=== PATIENT | female | born 2000 | race Caucasian/White ===

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

== ENCOUNTER 2021-03-27 18:05 | Emergency (ER) | payer MEDICAID ==
[2021-03-27] MEDS ORDERED: Sodium Chloride 0.9% 1,000 ML IV ONE (18:34)
[2021-03-27] MEDS ORDERED: Ketorolac 30 MG/ML SDV IVPUSH ONE (18:42)
[2021-03-27] MEDS ORDERED: Ondansetron 4 MG/2 ML SDV IVPUSH ONE (18:42)
--- NOTE | 2021-03-27 18:48 | EDM.PDOC ---
ED HPI GENERAL MEDICAL PROBLEM - General Chief Complaint: Gastrointestinal Problem Stated Complaint: VOMITING, HEADACHE Time Seen by Provider: 03/27/21 18:15 Source of Information: Reports: Patient History Limitations: Reports: No Limitations - History of Present Illness INITIAL COMMENTS - FREE TEXT/NARRATIVE: HISTORY AND PHYSICAL: History of present illness: Patient is a 20-year-old female who presents to the emergency room with complaints of nausea, vomiting and diarrhea over the past 24 hours. Currently has a mild headache "from puking". She states she was around a friend who had a "GI bug". She has no concern for as she has not had sexual intercourse since her last menstrual period. Patient denies any fever, chills, change in vision, syncope or near syncope. Denies any chest pain, back pain, shortness of breath or cough. Denies any abdominal pain, constipation or dysuria. Has not noted any blood in urine or stool. Patient has been eating and drinking appropriately. Review of systems: As per history of present illness and below otherwise all systems reviewed and negative. Past medical history: As per history of present illness and as reviewed below otherwise noncontributory. Surgical history: As per history of present illness and as reviewed below otherwise noncontributory. Social history: See social history for further information Family history: As per history of present illness and as reviewed below otherwise noncontributory. Physical exam: General: Well developed and well nourished 20-year-old female. Alert and orientated x 3. Nontoxic in appearance and in no acute distress. Vital signs are stable and have been reviewed by me. Nursing notes were reviewed. HEENT: Atraumatic, normocephalic, pupils equal and reactive bilaterally, negative for conjunctival pallor or scleral icterus, mucous membranes moist, TMs normal bilaterally, throat clear, neck supple, nontender, trachea midline. No drooling or trismus noted. No meningeal signs. No hot potato voice noted. Lungs: Clear to auscultation bilaterally. No wheezes, rales, or rhonchi. Chest nontender. Normal work of breathing, no accessory muscles used. Heart: S1S2, regular rate and rhythm without overt murmur, gallops, or rubs. No JVD. No peripheral edema Abdomen: Soft, nondistended, nontender. Normoactive bowel sounds. Negative for masses or costovertebral tenderness. Skin: Intact, warm, dry. No lesions or rashes noted. Hematologic: No petechiae or purpra. Mucosa appropriate color and normal nail bed color and refill. Extremities: Atraumatic, moves all extremities per self without difficulty or deficits, negative for cords or calf pain. Neurovascular unremarkable. Neuro: Awake, alert, oriented. Cranial nerves II through XII unremarkable. Cerebellum unremarkable. Motor and sensory unremarkable throughout. Exam nonfocal. Psychiatric: Mood and affect are appropriate. Normal thought process. Answering questions appropriately. Notes: *This patient was seen and evaluated during the 2019 SARS-CoV-2 novel coronavirus pandemic period. Community viral transmission is ongoing at time of this encounter and the emergency department is operating under pandemic response procedures. Patient declines wanting a urine test nor COVID-19 screening. She is agreeable to IV fluids and Toradol/Zofran. Lab work is unremarkable. She states her nausea is better and did keep fluids down. I have talked with the patient about today's findings, in addition to providing specific details for plan of care. Reassessment at the time of disposition demonstrates that the patient is in no acute distress. The patient is stable for discharge, counseling was provided and we discussed in great detail signs and symptoms that would prompt them to return to the Emergency Department. Medication, follow up and supportive care measures were reviewed and discussed. Voices understanding and is agreeable to plan of care. Denies any further questions or concerns at this time. Diagnostics: CBC, CMP, [employer]: IV fluids, Zofran, Toradol Prescription: None Impression: Gastroenteritis Plan: 1. You were evaluated today on an emergent basis. 2. You can alternate Tylenol and ibuprofen as needed for pain and fever management. 3. We encourage you to follow up with your primary care provider and/or recommended specialist in the next few days for re-evaluation and further care/management. 4. If your symptoms should worsen, new symptoms develop or any of the signs and symptoms we discussed should arise please return to the emergency room or call 911 (if needed). Definitive disposition and diagnosis as appropriate pending reevaluation and review of above. head Pain Score (Numeric/FACES): 9 - Related Data Allergies Allergy/AdvReac Type Severity Reaction Status Date / Time Penicillins Allergy Rash Verified 03/27/21 18:29 Home Meds: Home Meds Ondansetron [Zofran ODT] 4 mg PO Q6H PRN #8 tab.dis 03/27/21 [Rx] Past Medical History - Past Health History Medical/Surgical History: Denies Medical/Surgical History HEENT History: Reports: Otitis Media, Sinusitis Other Musculoskeletal History: sprained ankle Neurological History: Reports: Headaches, Chronic Other Neuro History: headache Psychiatric History: Reports: Anxiety, Depression - Infectious Disease History Infectious Disease History: Reports: None - Past Surgical History HEENT Surgical History: Reports: Adenoidectomy, Naso-Sinus Surgery, Tonsillectomy Other HEENT Surgeries/Procedures: wisdom teeth removal Neurological Surgical History: Reports: None Social & Family History - Family History Family Medical History: No Pertinent Family History - Caffeine Use Caffeine Use: Reports: Energy Drinks, Soda ED ROS GENERAL - Review of Systems Review Of Systems: Comprehensive ROS is negative, except as noted in HPI. ED EXAM, GI/ABD - Physical Exam Exam: See Below (See dictation) Course - Vital Signs Last Recorded V/S: Last Vital Signs Temp 97.5 F 03/27/21 18:22 Pulse 74 03/27/21 18:22 Resp 20 03/27/21 18:22 BP 122/55 L 03/27/21 18:22 Pulse Ox 97 03/27/21 18:22 - Orders/Labs/Meds Orders: Active Orders 24 hr Category Date Time Status UA RFX LIVAN AND CULT IF INDIC [URIN] Stat Lab 03/27/21 18:17 Ordered Sodium Chloride 0.9% [Normal Saline] 1,000 ml Med 03/27/21 18:34 Active IV STAT Medication Orders Sodium Chloride (Normal Saline) 1,000 mls @ 999 mls/hr IV STAT ONE Stop: 03/27/21 19:34 Last Admin: 03/27/21 18:47 Dose: 999 mls/hr Documented by: BEVERLY Labs: Laboratory Tests 03/27/21 03/27/21 Range/Units 18:47 18:47 WBC 7.75 (4.0-11.0) K/uL RBC 4.44 (4.30-5.90) M/uL Hgb 12.7 (12.0-16.0) g/dL Hct 38.2 (36.0-46.0) % MCV 86.0 (80.0-98.0) fL MCH 28.6 (27.0-32.0) pg MCHC 33.2 (31.0-37.0) g/dL RDW Std Deviation 41.0 (28.0-62.0) fl RDW Coeff of Micha 13 (11.0-15.0) % Plt Count 287 (150-400) K/uL MPV 9.50 (7.40-12.00) fL Neut % (Auto) 72.9 (48.0-80.0) % Lymph % (Auto) 17.3 (16.0-40.0) % Curry % (Auto) 8.9 (0.0-15.0) % Eos % (Auto) 0.8 (0.0-7.0) % Baso % (Auto) 0.1 (0.0-1.5) % Neut # (Auto) 5.7 (1.4-5.7) K/uL Lymph # (Auto) 1.3 (0.6-2.4) K/uL Curry # (Auto) 0.7 (0.0-0.8) K/uL Eos # (Auto) 0.1 (0.0-0.7) K/uL Baso # (Auto) 0.0 (0.0-0.1) K/uL Nucleated RBC % 0.0 /100WBC Nucleated RBCs # 0 K/uL Sodium 139 (136-145) mmol/L Potassium 3.7 (3.5-5.1) mmol/L Chloride 104 (98-107) mmol/L Carbon Dioxide 27.0 (21.0-32.0) mmol/L BUN 10 (7.0-18.0) mg/dL Creatinine 1.1 H (0.6-1.0) mg/dL Est Cr Clr Drug Dosing 68.05 mL/min Estimated GFR (MDRD) > 60.0 ml/min Glucose 92 (74-106) mg/dL Calcium 8.6 (8.5-10.1) mg/dL Total Bilirubin 0.6 (0.2-1.0) mg/dL AST 19 (15-37) IU/L ALT 43 (14-63) IU/L Alkaline Phosphatase 96 (46-116) U/L Total Protein 7.4 (6.4-8.2) g/dL Albumin 3.9 (3.4-5.0) g/dL Globulin 3.5 (2.6-4.0) g/dL Albumin/Globulin Ratio 1.1 (0.9-1.6) Meds: Medications Generic Name Dose Route Start Last Admin Trade Name Freq PRN Reason Stop Dose Admin Sodium Chloride 1,000 mls @ 999 mls/hr 03/27/21 18:34 03/27/21 18:47 Normal Saline IV 03/27/21 19:34 999 mls/hr STAT ONE Administration Discontinued Medications Generic Name Dose Route Start Last Admin Trade Name Freq PRN Reason Stop Dose Admin Ketorolac Tromethamine 30 mg 03/27/21 18:42 03/27/21 18:47 Ketorolac 30 Mg/Ml Sdv IVPUSH 03/27/21 18:43 30 mg ONETIME ONE Administration Ondansetron HCl 4 mg 03/27/21 18:42 03/27/21 18:47 Ondansetron 4 Mg/2 Ml Sdv IVPUSH 03/27/21 18:43 4 mg ONETIME ONE Administration Departure - Departure Time of Disposition: 19:26 Disposition: Home, Self-Care 01 Clinical Impression: Viral gastroenteritis - Discharge Information Prescriptions: Ondansetron [Zofran ODT] 4 mg PO Q6H PRN #8 tab.dis PRN Reason: Nausea Instructions: Viral Gastroenteritis, Adult, [id number] Referrals: PCP,None [Primary Care Provider] - Forms: ED Department Discharge Additional Instructions: The following information is given to patients seen in the emergency department who are being discharged to home. This information is to outline your options for follow-up care. We provide all patients seen in our emergency department with a follow-up referral. The need for follow-up, as well as the timing and circumstances, are variable depending upon the specifics of your emergency department visit. If you don't have a primary care physician on staff, we will provide you with a referral. We always advise you to contact your personal physician following an emergency department visit to inform them of the circumstance of the visit and for follow-up with them and/or the need for any referrals to a consulting specialist. The emergency department will also refer you to a specialist when appropriate. This referral assures that you have the opportunity for follow-up care with a specialist. All of these measure are taken in an effort to provide you with optimal care, which includes your follow-up. Under all circumstances we always encourage you to contact your private physician who remains a resource for coordinating your care. When calling for follow-up care, please make the office aware that this follow-up is from your recent emergency room visit. If for any reason you are refused follow-up, please contact the [facility] Emergency Department at and asked to speak to the emergency department charge nurse. [facility] [address] [place] [id number] [id number] Thank you for choosing the [facility] emergency department in [place] for your medical needs today. It was a pleasure caring for you. Today you were seen in the emergency department for gastroenteritis. 1. You were evaluated today on an emergent basis. 2. You can alternate Tylenol and ibuprofen as needed for pain and fever management. Zofran as needed for nausea management as directed. 3. We encourage you to follow up with your primary care provider and/or recommended specialist in the next few days for re-evaluation and further care/management. 4. If your symptoms should worsen, new symptoms develop or any of the signs and symptoms we discussed should arise please return to the emergency room or call 911 (if needed). Sepsis Event Note (ED) - Evaluation Sepsis Screening Result: No Definite Risk - Focused Exam Vital Signs: Vital Signs Temp Pulse Resp BP Pulse Ox 03/27/21 18:22 97.5 F 74 20 122/55 L 97 - My Orders Last 24 Hours: My Active Orders 03/27/21 18:17 UA RFX LIVAN AND CULT IF INDIC [URIN] Stat 03/27/21 18:34 Sodium Chloride 0.9% [Normal Saline] 1,000 ml IV STAT - Assessment/Plan Last 24 Hours: My Active Orders 03/27/21 18:17 UA RFX LIVAN AND CULT IF INDIC [URIN] Stat 03/27/21 18:34 Sodium Chloride 0.9% [Normal Saline] 1,000 ml IV STAT
[2021-03-27 19:16] LABS: BLOOD UREA NITROGEN,BUN 10 mg/dL (7.0-18.0); CHLORIDE,CL 104 mmol/L (98-107); GLUCOSE RANDOM 92 mg/dL (74-106); POTASSIUM,K 3.7 mmol/L (3.5-5.1); SODIUM,NA 139 mmol/L (136-145)
[2021-03-27 20:50] VITALS: BP 119/50; PULSE 78
== END 2021-03-27 20:00 | disposition home or self-care (01) ==
LOC: MW.ED 18:05
DX: A08.4 Viral intestinal infection, unspecified (principal); Z88.0 Allergy status to penicillin
CPT/HCPCS: 80053; 85025; 96374; 96375; 99284; J1885; J2405; J7030; 99283

== ENCOUNTER 2023-03-26 13:54 | Emergency (ER) | payer BC ==
[2023-03-26] MEDS ORDERED: Sodium Chloride 0.9% 1,000 ML IV ONE (14:05)
[2023-03-26 14:34] LABS: BASOPHILS PERCENT AUTO 0.1 % (0.0-1.5); EOSINOPHILS PERCENT AUTO 0.3 % (0.0-7.0); HEMATOCRIT 37.3 % (36.0-46.0); HEMOGLOBIN 12.6 g/dL (12.0-16.0); LYMPHOCYTES ABSOLUTE AUTO 1.2 K/uL (0.6-2.4); LYMPHOCYTES PERCENT AUTO 16.4 % (16.0-40.0); MEAN CORPUSCULAR HEMOGLOBIN 28.6 pg (27.0-32.0); MEAN CORPUSCULAR HGB CONC 33.8 g/dL (31.0-37.0); MEAN CORPUSCULAR VOLUME 84.6 fL (80.0-98.0); MONOCYTES ABSOLUTE AUTO 0.5 K/uL (0.0-0.8); MONOCYTES PERCENT AUTO 6.2 % (0.0-15.0); NEUTROPHILS ABSOLUTE AUTO 5.8 K/uL (1.4-5.7); NRBC ABSOLUTE 0 K/uL; PLATELET COUNT,PLT 267 K/uL (150-400); RED BLOOD CELL COUNT 4.41 M/uL (4.30-5.90); WHITE BLOOD CELL COUNT,WBC 7.55 K/uL (4.0-11.0)
[2023-03-26 15:22] LABS: CORONAVIRUS COVID-19 NAA NEGATIVE (NEGATIVE); INFLUENZA A NAA NEGATIVE (NEGATIVE); INFLUENZA B NAA NEGATIVE (NEGATIVE)
[2023-03-26 15:23] LABS: A/G RATIO 0.9 (0.9-1.6); ALANINE AMINOTRANSFERASE,ALT 34 IU/L (14-63); ALBUMIN 3.4 g/dL (3.4-5.0); ALKALINE PHOSPHATASE 68 U/L (46-116); ASPARTATE AMNIOTRANSFERASE,AST 15 IU/L (15-37); BILIRUBIN TOTAL 0.4 mg/dL (0.2-1.0); BLOOD UREA NITROGEN,BUN 7 mg/dL (7.0-18.0); CALCIUM 8.6 mg/dL (8.5-10.1); CARBON DIOXIDE,CO2 24.6 mmol/L (21.0-32.0); CHLORIDE,CL 102 mmol/L (98-107); CREATININE 0.9 mg/dL (0.6-1.0); EST CRCL DRUG DOSING (CG) 88.97 mL/min; GLUCOSE RANDOM 83 mg/dL (74-106); POTASSIUM,K 3.6 mmol/L (3.5-5.1); SODIUM,NA 138 mmol/L (136-145)
[2023-03-26 15:29] LABS: ESTIMATED GFR 93 mL/min (>60)
[2023-03-26 16:36] VITALS: BP 122/75; PULSE 81
== END 2023-03-26 16:34 | disposition home or self-care (01) ==
LOC: MW.ED 13:54
DX: O99.891 Other specified diseases and conditions complicating pregnancy (principal); R06.00 Dyspnea, unspecified; Z88.0 Allergy status to penicillin; Z20.822 Contact with and (suspected) exposure to COVID-19
CPT/HCPCS: 0240U; 36415; 71045; 80053; 84484; 84702; 84703; 85025; 93005; 96360; 99285; J7030; 93010; 99283

== ENCOUNTER 2023-05-26 08:10 | Emergency (ER) | payer BC ==
[2023-05-26] MEDS ORDERED: Metoclopramide 10 MG/2 ML SDV IVPUSH ONE (08:23)
[2023-05-26] MEDS ORDERED: Sodium Chloride 0.9% 2.5 ML Syringe FLUSH PRN (08:23)
[2023-05-26] MEDS ORDERED: Sodium Chloride 0.9% 1,000 ML IV ONE (08:23)
[2023-05-26] MEDS ORDERED: Sodium Chloride 0.9% 10 ML Syringe FLUSH PRN (08:23)
[2023-05-26] MEDS ORDERED: diphenhydrAMINE 50 MG/ML SDV IVPUSH ONE (08:23)
[2023-05-26 08:52] LABS: BASOPHILS PERCENT AUTO 0.2 % (0.0-1.5); EOSINOPHILS PERCENT AUTO 0.5 % (0.0-7.0); HEMATOCRIT 36.9 % (36.0-46.0); HEMOGLOBIN 12.8 g/dL (12.0-16.0); LYMPHOCYTES PERCENT AUTO 16.8 % (16.0-40.0); MEAN CORPUSCULAR HEMOGLOBIN 28.5 pg (27.0-32.0); MEAN CORPUSCULAR HGB CONC 34.7 g/dL (31.0-37.0); MEAN CORPUSCULAR VOLUME 82.2 fL (80.0-98.0); MONOCYTES ABSOLUTE AUTO 0.4 K/uL (0.0-0.8); NEUTROPHILS ABSOLUTE AUTO 4.6 K/uL (1.4-5.7); NEUTROPHILS PERCENT AUTO 75.5 % (48.0-80.0); NRBC ABSOLUTE 0 K/uL; PLATELET COUNT,PLT 245 K/uL (150-400); RED BLOOD CELL COUNT 4.49 M/uL (4.30-5.90); WHITE BLOOD CELL COUNT,WBC 6.12 K/uL (4.0-11.0)
[2023-05-26 09:03] LABS: INR 0.97 (0.86-1.11)
[2023-05-26 09:22] LABS: A/G RATIO 0.8 (0.9-1.6); ALBUMIN 3.1 g/dL (3.4-5.0); BILIRUBIN TOTAL 0.3 mg/dL (0.2-1.0); CALCIUM 8.8 mg/dL (8.5-10.1); CARBON DIOXIDE,CO2 22.5 mmol/L (21.0-32.0); CREATININE 0.7 mg/dL (0.6-1.0); EST CRCL DRUG DOSING (CG) 109.78 mL/min; MAGNESIUM 1.9 mg/dL (1.8-2.4); POTASSIUM,K 3.7 mmol/L (3.5-5.1); PROTEIN TOTAL,TP 6.8 g/dL (6.4-8.2)
[2023-05-26 10:29] VITALS: BP 100/68; PULSE 57
== END 2023-05-26 10:27 | disposition home or self-care (01) ==
LOC: MW.ED 08:10
DX: R51.9 Headache, unspecified (principal); Z33.1 Pregnant state, incidental; Z79.899 Other long term (current) drug therapy; Z88.0 Allergy status to penicillin
CPT/HCPCS: 36415; 70551; 80053; 83735; 85025; 85610; 96361; 96374; 96375; 99284; J1200; J2765; J3490; J7030

== ENCOUNTER 2023-09-16 16:00 | Emergency (ER) | payer BC ==
[2023-09-16 16:57] VITALS: BP 137/66; PULSE 77
== END 2023-09-16 16:55 | disposition home or self-care (01) ==
LOC: MW.ED 16:00
DX: O99.353 Diseases of the nervous system complicating pregnancy, third trimester (principal); G51.0 Bell's palsy; O99.283 Endocrine, nutritional and metabolic diseases complicating pregnancy, third trimester; E03.9 Hypothyroidism, unspecified; Z88.0 Allergy status to penicillin; Z79.899 Other long term (current) drug therapy; Z3A.31 31 weeks gestation of pregnancy
CPT/HCPCS: 99283

== ENCOUNTER 2023-11-14 20:52 | Inpatient (IN) | payer BC, OTHER ==
[2023-11-14] MEDS ORDERED: Phenylephrine HCl 0.5 MG/5 ML AMP IVPUSH PRN (21:52)
[2023-11-14] MEDS ORDERED: ePHEDrine 50 MG/ML SDV IVPUSH PRN ×2 (21:52)
[2023-11-14] MEDS ORDERED: Ropivacaine HCl/PF 400 MG in Premix Bag 1 BAG EPIDUR SCH (22:00)
[2023-11-14] MEDS ORDERED: Lidocaine 1% 50 ML MDV INJECT PRN (22:07)
[2023-11-14] MEDS ORDERED: Methylergonovine 0.2 MG/1 ML Amp IM PRN (22:07)
[2023-11-14] MEDS ORDERED: Misoprostol 200 MCG Tab PO PRN (22:07)
[2023-11-14] MEDS ORDERED: Water For Irrigation,Sterile 1,000 ML Container IRR PRN (22:07)
[2023-11-14] MEDS ORDERED: Sodium Chloride 0.9% 2.5 ML Syringe FLUSH PRN (22:07)
[2023-11-14] MEDS ORDERED: Sodium Chloride 0.9% 10 ML Syringe FLUSH PRN (22:07)
[2023-11-14] MEDS ORDERED: Carboprost Tromethamine 250 MCG/1 mL Vial IM PRN (22:07)
[2023-11-14] MEDS ORDERED: Sodium Chloride 0.9% 20 ML SDV IV PRN (22:07)
[2023-11-14] MEDS ORDERED: Tranexamic Acid IN NACL,ISO-OS 1,000 MG in Premix Bag 1 BAG IV PRN ×2 (22:07)
[2023-11-14] MEDS ORDERED: Oxytocin/0.9 % Sodium Chloride 30 UNIT/500 ML BAG IV SCH ×2 (22:15→23:30)
[2023-11-14] MEDS: Lactated Ringers 1,000 ML IV SCH (23:10)
[2023-11-14 23:13] LABS: HEMATOCRIT 33.4 % (37.0-47.0); HEMOGLOBIN 11.1 g/dL (12.0-16.0); MEAN CORPUSCULAR HEMOGLOBIN 27.1 pg (28.0-32.0); MEAN CORPUSCULAR HGB CONC 33.2 g/dL (32.0-36.0); MEAN CORPUSCULAR VOLUME 81.5 fL (83.0-99.0); MEAN PLATELET VOLUME 9.6 fL (9.4-12.3); PLATELET COUNT,PLT 271 K/uL (150-400); WHITE BLOOD CELL COUNT,WBC 11.32 K/uL (3.9-11.3)
[2023-11-14] MEDS ORDERED: Terbutaline 1 MG/ML SDV SUBCUT PRN (23:22)
[2023-11-14] MEDS ORDERED: Misoprostol 25 MCG (1/4 of 100 MCG) Tab VAG PRN (23:22)
[2023-11-15] MEDS: Nalbuphine 10 MG/0.5 ML Syringe IVPUSH PRN ×3 (02:23→12:24)
[2023-11-15] MEDS: Lactated Ringers 1,000 ML IV SCH ×2 (02:24→16:12)
[2023-11-15] MEDS: Misoprostol 25 MCG (1/4 of 100 MCG) Tab VAG PRN ×3 (04:10→12:21)
[2023-11-15] MEDS: Ondansetron 4 MG/2 ML SDV IVPUSH PRN ×2 (08:16→19:58)
[2023-11-15] MEDS ORDERED: Bupivacaine 0.5% 10 ML SDV ONE (15:00)
[2023-11-15] MEDS ORDERED: Ropivacaine HCl/PF 200 ML ONE (15:00)
[2023-11-15] MEDS ORDERED: Acetaminophen 500 MG Tab PO ONE (19:49)
[2023-11-15] MEDS ORDERED: Benzocaine/Menthol 20%-0.5% Spray 78 GM Cannister TOP PRN (22:11)
[2023-11-15] MEDS ORDERED: Tranexamic Acid IN NACL,ISO-OS 1,000 MG in Premix Bag 1 BAG IV PRN ×2 (22:11)
[2023-11-15] MEDS ORDERED: Methylergonovine 0.2 MG/1 ML Amp IM PRN (22:11)
[2023-11-15] MEDS ORDERED: Lanolin 100% Cream 7 GM Tube TOP PRN (22:11)
[2023-11-15] MEDS ORDERED: Docusate Sodium 100 MG Cap PO PRN (22:11)
[2023-11-15] MEDS ORDERED: Witch Hazel Medicated Pads 40/Jar TOP PRN (22:11)
[2023-11-15 22:33] LABS: PH,UMBILICAL ARTERIAL 7.195 (7.18-7.38); PH,UMBILICAL VENOUS 7.272 (7.25-7.45)
[2023-11-16] MEDS: Acetaminophen 500 MG Tab PO PRN ×2 (01:06→12:46)
[2023-11-16] MEDS: Ibuprofen 800 MG Tab PO PRN ×2 (05:02→21:18)
[2023-11-16 06:01] LABS: HEMATOCRIT 29.9 % (37.0-47.0); HEMOGLOBIN 9.7 g/dL (12.0-16.0)
[2023-11-16] MEDS: Levothyroxine 25 MCG Tab PO SCH (09:21)
[2023-11-16] MEDS: Furosemide 20 MG Tab PO SCH (09:21)
[2023-11-16] MEDS: Sertraline 50 MG Tab PO SCH (09:22)
[2023-11-16] MEDS: Prenatal Multivitamin with Calcium/Folic Acid/Iron Tab PO SCH (09:22)
[2023-11-17 00:36] VITALS: PULSE 74
[2023-11-17 08:00] VITALS: BP 126/72
[2023-11-17] MEDS: Levothyroxine 25 MCG Tab PO SCH (08:32)
[2023-11-17] MEDS: Furosemide 20 MG Tab PO SCH (08:32)
[2023-11-17] MEDS: Sertraline 50 MG Tab PO SCH (08:34)
[2023-11-17] MEDS: Prenatal Multivitamin with Calcium/Folic Acid/Iron Tab PO SCH (08:34)
== END 2023-11-17 13:20 | disposition home or self-care (01) | DRG 560 ==
LOC: MW.OBCHECK 20:52 → MW.OB 20:52 → MW.OBCHECK 21:18 → MW.OB 21:18 → OBSVTOIN 11-15 21:40 → MW.OB 11-16 01:32
PROVIDERS: ADMIT Obstetrics & Gynecology; ATTEND Obstetrics & Gynecology
PROC: 10E0XZZ Delivery of Products of Conception, External Approach (ICD-10-PCS; principal; 2023-11-15)
PROC: 3E033VJ Introduction of Other Hormone into Peripheral Vein, Percutaneous Approach (ICD-10-PCS; 2023-11-15)
PROC: 0KQM0ZZ Repair Perineum Muscle, Open Approach (ICD-10-PCS; 2023-11-15)
PROC: 3E0P7VZ Introduction of Hormone into Female Reproductive, Via Natural or Artificial Opening (ICD-10-PCS; 2023-11-15)
PROC: 3E0DXGC Introduction of Other Therapeutic Substance into Mouth and Pharynx, External Approach (ICD-10-PCS; 2023-11-15)
DX: O42.12 Full-term premature rupture of membranes, onset of labor more than 24 hours following rupture (principal); Z37.0 Single live birth; O99.344 Other mental disorders complicating childbirth; O70.1 Second degree perineal laceration during delivery; O99.214 Obesity complicating childbirth; E03.9 Hypothyroidism, unspecified; F32.A Depression, unspecified; F41.9 Anxiety disorder, unspecified; O99.284 Endocrine, nutritional and metabolic diseases complicating childbirth; Z90.89 Acquired absence of other organs; Z3A.40 40 weeks gestation of pregnancy; Z98.890 Other specified postprocedural states; Z88.0 Allergy status to penicillin
CPT/HCPCS: 36415; 51702; 59025; 59409; 82803; 84112; 85014; 85018; 85027; 86592; 86850; 86900; 86901; A9270-GY; J0665; J2300; J2405; J2590; J2795; J7120

== ENCOUNTER 2024-03-13 03:57 | Emergency (ER) | payer BC, OTHER ==
[2024-03-13] MEDS: diphenhydrAMINE 50 MG/ML SDV IVPUSH ONE (04:35)
[2024-03-13] MEDS: Sodium Chloride 0.9% 2.5 ML Syringe FLUSH PRN (04:35)
[2024-03-13] MEDS: Sodium Chloride 0.9% 1,000 ML IV ONE (04:35)
[2024-03-13] MEDS: Metoclopramide 10 MG/2 ML SDV IVPUSH ONE (04:35)
[2024-03-13] MEDS: Ketorolac 30 MG/ML SDV IVPUSH ONE (04:35)
[2024-03-13] MEDS: Sodium Chloride 0.9% 10 ML Syringe FLUSH PRN (04:38)
[2024-03-13 05:49] VITALS: BP 110/64; PULSE 61
== END 2024-03-13 05:48 | disposition home or self-care (01) ==
LOC: MW.ED 03:57
DX: G43.909 Migraine, unspecified, not intractable, without status migrainosus (principal); Z88.0 Allergy status to penicillin; Z79.899 Other long term (current) drug therapy; Z75.8 Other problems related to medical facilities and other health care
CPT/HCPCS: 96361; 96374; 96375; 99283; J1200; J1885; J2765; J3490; J7030; 99284

== ENCOUNTER 2024-04-29 08:05 | Emergency (ER) | payer BC, MEDICAID ==
[2024-04-29 08:22] VITALS: BP 145/53; PULSE 80
[2024-04-29] MEDS: oxyCODONE 5 MG Tab PO ONE (08:41)
[2024-04-29] MEDS: Ondansetron 4 MG Tab.DIS PO ONE (08:41)
== END 2024-04-29 09:45 | disposition home or self-care (01) ==
LOC: MW.ED 08:05
DX: S93.401A Sprain of unspecified ligament of right ankle, initial encounter (principal); S93.402A Sprain of unspecified ligament of left ankle, initial encounter; J45.909 Unspecified asthma, uncomplicated; E03.9 Hypothyroidism, unspecified; Z88.0 Allergy status to penicillin; Z79.890 Hormone replacement therapy; Z79.899 Other long term (current) drug therapy; W10.9XXA Fall (on) (from) unspecified stairs and steps, initial encounter
CPT/HCPCS: 73610; 73630; 99283; A9270

== ENCOUNTER 2024-11-03 07:57 | Emergency (ER) | payer BC, MEDICAID ==
[2024-11-03 08:26] LABS: BASOPHILS ABSOLUTE AUTO 0.01 K/uL (0.00-0.20); BASOPHILS PERCENT AUTO 0.1 % (0.0-1.0); EOSINOPHILS ABSOLUTE AUTO 0.04 K/uL (0.00-0.45); EOSINOPHILS PERCENT AUTO 0.5 % (0.0-6.0); HEMATOCRIT 33.7 % (37.0-47.0); HEMOGLOBIN 11.2 g/dL (12.0-16.0); IMMATURE GRAN ABSOLUTE AUTO 0.03 K/uL (0.00-0.05); IMMATURE GRAN PERCENT AUTO 0.4 % (0.0-0.4); LYMPHOCYTES ABSOLUTE AUTO 0.78 K/uL (1.00-4.80); LYMPHOCYTES PERCENT AUTO 9.3 % (24.0-44.0); MEAN CORPUSCULAR HEMOGLOBIN 27.6 pg (28.0-32.0); MEAN CORPUSCULAR HGB CONC 33.2 g/dL (32.0-36.0); MEAN PLATELET VOLUME 9.3 fL (9.4-12.3); MONOCYTES PERCENT AUTO 4.8 % (0.0-8.0); NEUTROPHILS ABSOLUTE AUTO 7.14 K/uL (1.80-7.70); NEUTROPHILS PERCENT AUTO 84.9 % (41.0-71.0); PLATELET COUNT,PLT 220 K/uL (150-400); RED BLOOD CELL COUNT 4.06 M/uL (4.10-5.30)
[2024-11-03 08:50] LABS: A/G RATIO 0.7 (0.9-1.6); ALANINE AMINOTRANSFERASE,ALT 20 IU/L (14-63); ALBUMIN 2.6 g/dL (3.4-5.0); ALKALINE PHOSPHATASE 96 U/L (46-116); ASPARTATE AMNIOTRANSFERASE,AST 14 IU/L (15-37); BILIRUBIN TOTAL 0.3 mg/dL (0.2-1.0); BLOOD UREA NITROGEN,BUN 6 mg/dL (7.0-18.0); CALCIUM 8.6 mg/dL (8.5-10.1); CARBON DIOXIDE,CO2 24.2 mmol/L (21.0-32.0); CHLORIDE,CL 102 mmol/L (98-107); CREATININE 0.7 mg/dL (0.6-1.0); EST CRCL DRUG DOSING (CG) 108.86 mL/min; GLUCOSE RANDOM 120 mg/dL (74-106); POTASSIUM,K 3.3 mmol/L (3.5-5.1); PROTEIN TOTAL,TP 6.5 g/dL (6.4-8.2); SODIUM,NA 135 mmol/L (136-145)
[2024-11-03 08:52] LABS: ESTIMATED GFR 125 mL/min (>60)
[2024-11-03] MEDS: Iopamidol 755 Mg/ML 100 ML Bottle IVPUSH ONE (09:57)
[2024-11-03 10:58] VITALS: BP 102/53; PULSE 69
== END 2024-11-03 10:57 | disposition home or self-care (01) ==
LOC: MW.ED 07:57
DX: R06.02 Shortness of breath (principal); J45.909 Unspecified asthma, uncomplicated; E03.9 Hypothyroidism, unspecified; Z75.8 Other problems related to medical facilities and other health care; Z88.0 Allergy status to penicillin; Z79.890 Hormone replacement therapy; Z79.899 Other long term (current) drug therapy
CPT/HCPCS: 36415; 71046; 71275; 80053; 83880; 84484; 85025; 85379; 93005; 99285; Q9967; 93010; 99283

== ENCOUNTER 2025-01-31 00:05 | Inpatient (IN) | payer BC, MEDICAID ==
[2025-01-31] MEDS ORDERED: Sodium Chloride 0.9% 10 ML Syringe FLUSH PRN (00:14)
[2025-01-31] MEDS ORDERED: Terbutaline 1 MG/ML SDV SUBCUT PRN (00:14)
[2025-01-31] MEDS ORDERED: Sodium Chloride 0.9% 20 ML SDV IV PRN (00:14)
[2025-01-31] MEDS ORDERED: Ondansetron 4 MG/2 ML SDV IVPUSH PRN (00:14)
[2025-01-31] MEDS ORDERED: Butorphanol 2 MG/ML SDV IVPUSH PRN (00:14)
[2025-01-31] MEDS ORDERED: Water For Irrigation,Sterile 1,000 ML Container IRR PRN (00:14)
[2025-01-31] MEDS ORDERED: Methylergonovine 0.2 MG/1 ML Amp IM PRN (00:14)
[2025-01-31] MEDS ORDERED: Lidocaine 1% 50 ML MDV INJECT PRN (00:14)
[2025-01-31] MEDS ORDERED: Sodium Chloride 0.9% 2.5 ML Syringe FLUSH PRN (00:14)
[2025-01-31] MEDS ORDERED: Carboprost Tromethamine 250 MCG/1 mL Vial IM PRN (00:14)
[2025-01-31] MEDS ORDERED: Misoprostol 200 MCG Tab PO PRN (00:14)
[2025-01-31] MEDS ORDERED: Oxytocin/0.9 % Sodium Chloride 30 UNIT/500 ML BAG IV SCH (00:15)
[2025-01-31 00:52] LABS: HEMATOCRIT 33.7 % (37.0-47.0); HEMOGLOBIN 11.2 g/dL (12.0-16.0); MEAN CORPUSCULAR HEMOGLOBIN 26.7 pg (28.0-32.0); MEAN CORPUSCULAR HGB CONC 33.2 g/dL (32.0-36.0); MEAN CORPUSCULAR VOLUME 80.4 fL (83.0-99.0); MEAN PLATELET VOLUME 9.6 fL (9.4-12.3); PLATELET COUNT,PLT 304 K/uL (150-400); RED BLOOD CELL COUNT 4.19 M/uL (4.10-5.30); WHITE BLOOD CELL COUNT,WBC 12.25 K/uL (3.9-11.3)
[2025-01-31] MEDS: Lactated Ringers 1,000 ML IV SCH (01:05)
[2025-01-31] MEDS: Oxytocin/0.9 % Sodium Chloride 30 UNIT/500 ML BAG IV SCH (03:05)
[2025-01-31] MEDS ORDERED: Ropivacaine HCl/PF 200 ML ONE (12:00)
[2025-01-31] MEDS ORDERED: Bupivacaine 0.5% 10 ML SDV ONE (12:00)
[2025-01-31] MEDS ORDERED: Phenylephrine HCl In 0.9% NaCl 1 MG/10 ML Syringe ONE (12:01)
[2025-01-31] MEDS: Ropivacaine HCl/PF 400 MG in Premix Bag 1 BAG EPIDUR SCH (12:20)
[2025-01-31] MEDS ORDERED: ePHEDrine 50 MG/ML SDV IVPUSH PRN (12:28)
[2025-01-31] MEDS ORDERED: ePHEDrine 50 MG/ML SDV IM PRN (12:28)
[2025-01-31] MEDS ORDERED: Phenylephrine HCl In 0.9% NaCl 1 MG/10 ML Syringe IVPUSH PRN (12:28)
[2025-01-31] MEDS ORDERED: Bupivacaine 0.5% 10 ML SDV INJECT ONE (12:28)
[2025-01-31] MEDS ORDERED: dexmedeTOMIDine HCl 200 MCG/2 ML SDV EPIDUR SCH (12:30)
[2025-01-31] MEDS ORDERED: Acetaminophen 500 MG Tab PO PRN (17:27)
[2025-01-31] MEDS ORDERED: Ibuprofen 800 MG Tab PO PRN (17:27)
[2025-01-31] MEDS ORDERED: Docusate Sodium 100 MG Cap PO PRN (17:27)
[2025-01-31] MEDS ORDERED: oxyCODONE 5 MG Tab PO PRN (17:27)
[2025-01-31] MEDS ORDERED: Lanolin 100% Cream 7 GM Tube TOP PRN (17:27)
[2025-01-31 18:26] LABS: PH,UMBILICAL ARTERIAL 7.35 (7.18-7.38); PH,UMBILICAL VENOUS 7.38 (7.25-7.45)
[2025-01-31] MEDS: Sertraline 50 MG Tab PO SCH (21:50)
[2025-01-31] MEDS: Benzocaine/Menthol 20%-0.5% Spray 78 GM Cannister TOP PRN (22:53)
[2025-01-31] MEDS: Witch Hazel Medicated Pads 40/Jar TOP PRN (22:54)
[2025-02-01 06:06] LABS: HEMATOCRIT 31.8 % (37.0-47.0); HEMOGLOBIN 10.2 g/dL (12.0-16.0)
[2025-02-01] MEDS: Levothyroxine 25 MCG Tab PO SCH (08:57)
[2025-02-01 15:59] VITALS: BP 120/70; PULSE 88
== END 2025-02-01 19:20 | disposition home or self-care (01) | DRG 560 ==
LOC: MW.OB 00:05 → OBSVTOIN 17:05 → MW.OB 17:05
PROVIDERS: ADMIT Obstetrics & Gynecology; ATTEND Obstetrics & Gynecology
PROC: 10E0XZZ Delivery of Products of Conception, External Approach (ICD-10-PCS; principal; 2025-01-31)
PROC: 3E0R3BZ Introduction of Anesthetic Agent into Spinal Canal, Percutaneous Approach (ICD-10-PCS; 2025-01-31)
PROC: 3E033VJ Introduction of Other Hormone into Peripheral Vein, Percutaneous Approach (ICD-10-PCS; 2025-01-31)
PROC: 10907ZC Drainage of Amniotic Fluid, Therapeutic from Products of Conception, Via Natural or Artificial Opening (ICD-10-PCS; 2025-01-31)
DX: O99.214 Obesity complicating childbirth (principal); O99.284 Endocrine, nutritional and metabolic diseases complicating childbirth; Z3A.39 39 weeks gestation of pregnancy; Z37.0 Single live birth; O99.344 Other mental disorders complicating childbirth; F32.A Depression, unspecified; Z90.49 Acquired absence of other specified parts of digestive tract; Z88.0 Allergy status to penicillin; Z79.899 Other long term (current) drug therapy; E03.9 Hypothyroidism, unspecified; Z98.890 Other specified postprocedural states; Z79.890 Hormone replacement therapy
CPT/HCPCS: 36415; 51702; 59025; 59409; 82803; 85014; 85018; 85027; 86592; 86850; 86900; 86901; A9270-GY; J0665; J2371; J2590; J2795; J7120

== ENCOUNTER 2025-06-16 11:03 | Emergency (ER) | payer BC, MEDICAID ==
[2025-06-16 12:12] VITALS: BP 143/62; PULSE 75
[2025-06-16 12:55] LABS: BASOPHILS ABSOLUTE AUTO 0.01 K/uL (0.00-0.20); BASOPHILS PERCENT AUTO 0.1 % (0.0-1.0); EOSINOPHILS ABSOLUTE AUTO 0.08 K/uL (0.00-0.45); EOSINOPHILS PERCENT AUTO 1.2 % (0.0-6.0); IMMATURE GRAN ABSOLUTE AUTO 0.02 K/uL (0.00-0.05); IMMATURE GRAN PERCENT AUTO 0.3 % (0.0-0.4); LYMPHOCYTES ABSOLUTE AUTO 1.33 K/uL (1.00-4.80); LYMPHOCYTES PERCENT AUTO 19.7 % (24.0-44.0); MEAN PLATELET VOLUME 9.4 fL (9.4-12.3); MONOCYTES ABSOLUTE AUTO 0.51 K/uL (0.00-0.80); MONOCYTES PERCENT AUTO 7.5 % (0.0-8.0); NEUTROPHILS ABSOLUTE AUTO 4.81 K/uL (1.80-7.70); NEUTROPHILS PERCENT AUTO 71.2 % (41.0-71.0); NRBC ABSOLUTE 0.00 K/uL (0.00-0.02); NRBC PERCENT 0.0 /100WBC (0.0-0.2); PLATELET COUNT,PLT 258 K/uL (150-400); RED BLOOD CELL COUNT 4.20 M/uL (4.10-5.30); WHITE BLOOD CELL COUNT,WBC 6.76 K/uL (3.9-11.3)
[2025-06-16 13:09] LABS: INR 0.99 (0.86-1.11)
== END 2025-06-16 13:32 | disposition home or self-care (01) ==
LOC: MW.ED 11:03
DX: R04.0 Epistaxis (principal); E03.9 Hypothyroidism, unspecified; Z88.0 Allergy status to penicillin; Z79.890 Hormone replacement therapy; Z79.899 Other long term (current) drug therapy
CPT/HCPCS: 36415; 85025; 85610; 99283